=== PATIENT | female | born 1960 | race Caucasian/White ===

== ENCOUNTER → 2017-07-29 | Outpatient (CLI) | payer BC, MEDICARE | LOC: M RAD 14:18 | DX: R05 Cough (principal) | CPT/HCPCS: 71250 ==

== ENCOUNTER → 2022-06-13 | Outpatient (CLI) | payer MEDICARE, BC ==
[~2022-06-13] MED LIST: ATEN50TA2 OR; CARI350T; COUM1TAB14; DYAZ37.5 OR; FLECTOR PATCH TD; LEVORA-28; PROZ20CA OR; SKEL800T5 OR; SOMA350T OR; TRAM50TA2 OR; TYL325 OR; TYLENOL PM OR; VOLT75TA TOP
== END ==
LOC: M RAD 15:18
PROVIDERS: ATTEND Physician Assistant
DX: Z01.811 Encounter for preprocedural respiratory examination (principal); D86.9 Sarcoidosis, unspecified; R91.8 Other nonspecific abnormal finding of lung field